=== PATIENT | female | born 1955 | race Caucasian/White ===

== ENCOUNTER 2024-09-08 14:23 | Emergency (ER) | payer MEDICARE, SELFPAY ==
[2024-09-08] VITALS (13 sets, daily range): BP systolic 141–185; BP diastolic 71–118; PULSE 61–77; RESP 15–35; TEMP 36.2; O2SAT 95–99; BMI 33.4
--- NOTE | 2024-09-08 14:33 | EKG_ITS ---
[address] [address] Test Date: 2024-09-08 Pat Name: Wendy Fountain Department: [facility] Room: Gender: Female Dependency Director: MEHDI : 1955 Requested By: Order Number: [id number] Reading MD: Farzad Christian Measurements Intervals [place] Rate: 66 P: 63 ND: 152 QRS: -6 QRSD: 90 T: 11 QT: 402 QTc: 421 Interpretive Statements Normal sinus rhythm Minimal voltage criteria for LVH, may be normal variant ( R in aVL ) Electronically Signed On 09-10-2024 15:50:30 PDT by Farzad Christian
--- NOTE | 2024-09-08 14:33 | DI.RAD.S_ITS ---
PROCEDURE: XR CHEST 1V INDICATIONS: chest pain TECHNIQUE: One view of the chest was acquired. COMPARISON: None. FINDINGS: Surgical changes and devices: None. Lungs and pleura: Left lower lobe peripheral atelectasis and or infiltrate Mediastinum: Mediastinal contours appear normal. Heart size is normal. Bones and chest wall: No suspicious bony lesions. Overlying soft tissues appear unremarkable. IMPRESSION: Left lower lobe peripheral atelectasis and or infiltrate Approved by: López Stephenson M.D. on 09/08/2024 at 14:21
[2024-09-08 14:59] LABS: Add Manual Diff / Slide Review NO; Basophils Absolute Auto 100 /uL (0-100); Eosinophils Absolute Auto 200 /uL (0-450); Eosinophils Percent Auto 2.5 % (2-4); Hematocrit 37.6 % (36-46); Hemoglobin 12.8 g/dL (12.0-16.0); Lymphocytes Absolute Auto 2300 /uL (1100-4500); Lymphocytes Percent Auto 27.9 % (25-40); Mean Corpuscular HGB Conc 34.2 % (30-36); Mean Corpuscular Hemoglobin 32.2 PG (26-34); Mean Corpuscular Volume 94.4 fL (80-100); Monocytes Absolute Auto 500 /uL (0-900); Monocytes Percent Auto 6.2 % (3-14); Neutrophils Absolute Auto 5100 /uL (1500-7000); Neutrophils Percent Auto 62.4 % (50-75); Platelet Count 268 X10^3/uL (150-400); Red Blood Cell Count 3.98 X10^6/uL (4.0-5.2); Red Cell Distribution Width 13.2 % (11.6-14.8); White Blood Cell Count 8.2 X10^3/uL (4.5-11.0)
[2024-09-08 15:03] LABS: Prothrombin Time 11.2 SECONDS (9.4-12.5)
[2024-09-08 15:06] LABS: PTT Partial Thromboplastin Tim 34 SECONDS (25.1-36.5)
[2024-09-08] MEDS: ASPIRIN 81 MG CHEW TAB 324 MG PO (15:09)
[2024-09-08 15:11] LABS: Alanine Aminotransferase 30 IU/L (<35); Albumin 4.6 g/dL (3.5-5.0); Albumin Globulin Ratio 1.8 (1.0-2.8); Alkaline Phosphatase 75 U/L (38-126); Aspartate Aminotransferase 38 IU/L (14-36); Bilirubin Total 0.5 mg/dL (0.2-1.3); Blood Urea Nitrogen 10 mg/dL (7-17); Calcium 10.1 mg/dL (8.4-10.2); Carbon Dioxide 29 mmol/L (22-32); Chloride 104 mmol/L (98-107); Creatine Kinase 58 U/L (30-135); Estimated Glomerular Filt Rate > 60 mL/min (>60); Globulin 2.6 g/dL (1.7-4.1); Glucose 104 mg/dL (80-110); HEMOLYSIS < 15 (0-50); Lipase 55 U/L (23-300); Potassium 3.6 mmol/L (3.4-5.1); Sodium 138 mmol/L (137-145); Total Protein 7.2 g/dL (6.3-8.2)
[2024-09-08 15:17] LABS: Magnesium 2.1 mg/dL (1.6-2.3)
[2024-09-08 15:21] LABS: NT-proBNP (BNP-Adult 18+) 160 pg/mL (<125); Troponin I < 0.012 ng/mL (0.01-0.034)
--- NOTE | 2024-09-08 16:23 | ED.ABDPAIN ---
HPI - Abdominal Pain General Chief Complaint: Abdominal Pain Stated Complaint: Central Abd pain Time Seen by Provider: 09/08/24 16:20 History of Present Illness HPI narrative: Patient is a 68-year-old female history of hypertension hyperlipidemia presenting today with epigastric pain. It has been ongoing since yesterday nothing makes it better or worse she denies really any chest pain. No nausea or vomiting. No shortness of breath. No dyspnea with exertion. She has no fever or chills. No lower abdominal pain no back pain. She was worried about her heart she has no known cardiac disease. Related Data Home Medications Medication Instructions Recorded Confirmed atorvastatin 20 mg tablet 20 mg PO DAILY 07/06/24 08/23/24 olmesartan 5 mg tablet 5 mg PO DAILY 07/06/24 08/23/24 Allergies Allergy/AdvReac Type Severity Reaction Status Date / Time No Known Drug Allergies Allergy Unverified 08/23/24 08:47 Patient History Medical History Hyperlipidemia Hypertension Hearing difficulty of both ears Hearing decreased Headache Foot pain Fibromyalgia (~2014) Carpal tunnel syndrome (~2007) Ankle pain (~2003) Rubella (~1971) Mumps (~1958) Measles (~1958) Chicken pox (~1958) Surgical History Anesthesia History of surgery Family History Father Cancer Mother Congestive heart failure Hypertension Mental health problem Social History Smoking Status: Never smoker Smoking Status: Never smoker Exam Initial Vital Signs Initial Vital Signs: Vital Signs Temperature 97.1 F L 09/08/24 14:29 Pulse Rate 77 09/08/24 14:29 Respiratory Rate 16 09/08/24 14:29 Blood Pressure 185/82 H 09/08/24 14:29 Pulse Oximetry 99 09/08/24 14:29 Oxygen Delivery Method Room Air 09/08/24 14:29 GENERAL: Alert well-appearing slightly anxious 68-year-old female and in no acute distress. HEENT: Head atraumatic,EOMI, pupils reactive, face symmetric, moist mucous membranes CARDIOVASCULAR: Regular rate and rhythm without murmurs, rubs or gallops. RESPIRATORY: Breath sounds equal bilaterally, no wheezes rales or rhonchi. ABDOMEN: Soft, epigastric tenderness negative Plasencia's sign no guarding no rebound EXTREMITIES: Normal range of motion, no clubbing or edema. Neurovascularly intact NEUROLOGICAL: Alert and oriented x4.Normal gait and speech. SKIN: Warm, dry, no laceration, no petechiae, no rashes or lesions. Scores HEART Score Heart Score history: Slightly Suspicious Heart Score EKG: Normal Heart Score Age: > or = 65 years old Heart Score risk factors: 1-2 risk factors Heart Score troponin: < or = to normal limit Heart Score Total: 3 Course Orders Ordered: ED Orders 09/08/24 14:33 XR chest 1V Stat Complete Blood Count AUTO DIFF Stat Comprehensive Metabolic Panel Stat Lipase Stat Magnesium Stat NT-proBNP (BNP-Adult 18+) Stat PTT Partial Thromboplastin Kenneth Stat Prothrombin Time INR Stat Troponin & CK Cardiac Panel Stat EKG-12 Lead Stat 09/08/24 16:38 Trop I [Troponin I] Stat 09/08/24 16:46 US abdomen limited Stat Discontinued Medications Aspirin (Aspirin 81 Mg Chew Tab) 324 mg PO NOW ONE Stop: 09/08/24 14:34 Last Admin: 09/08/24 15:09 Dose: 324 mg Documented By: CAROLYN Vital Signs Vital signs: Vital Signs - 8 hr 09/08/24 14:29 09/08/24 14:41 09/08/24 14:56 Temperature 97.1 F L Pulse Rate 77 73 73 Respiratory Rate 16 35 H Blood Pressure 185/82 H Pulse Oximetry 99 98 98 Oxygen Delivery Method Room Air 09/08/24 14:56 09/08/24 15:00 09/08/24 15:01 Temperature Pulse Rate 70 Respiratory Rate 24 Blood Pressure 141/79 H 176/77 H Pulse Oximetry 98 Oxygen Delivery Method 09/08/24 15:01 09/08/24 15:30 09/08/24 15:31 Temperature Pulse Rate 68 66 Respiratory Rate 25 H 16 Blood Pressure 160/71 H Pulse Oximetry 96 98 Oxygen Delivery Method 09/08/24 15:31 09/08/24 16:00 09/08/24 16:01 Temperature Pulse Rate 66 63 63 Respiratory Rate 21 18 15 Blood Pressure Pulse Oximetry 96 98 95 Oxygen Delivery Method 09/08/24 16:01 09/08/24 16:30 09/08/24 16:31 Temperature Pulse Rate 61 64 Respiratory Rate 25 H 25 H Blood Pressure 185/73 H 185/80 H Pulse Oximetry 97 98 Oxygen Delivery Method 09/08/24 17:01 09/08/24 17:31 Temperature Pulse Rate 65 69 Respiratory Rate 15 24 Blood Pressure 173/75 H 174/118 H Pulse Oximetry 96 97 Oxygen Delivery Method Room Air MDM - Abdominal Pain Lab Data 09/08/24 14:33 09/08/24 14:33 Labs: Lab Results 09/08/24 09/08/24 Range/Units 14:33 16:38 WBC 8.2 (4.5-11.0) X10^3/uL RBC 3.98 L (4.0-5.2) X10^6/uL Hgb 12.8 (12.0-16.0) g/dL Hct 37.6 (36-46) % MCV 94.4 (80-100) fL MCH 32.2 (26-34) PG MCHC 34.2 (30-36) % RDW 13.2 (11.6-14.8) % Plt Count 268 (150-400) X10^3/uL Neut % (Auto) 62.4 (50-75) % Lymph % (Auto) 27.9 (25-40) % [place] % (Auto) 6.2 (3-14) % Eos % (Auto) 2.5 (2-4) % Baso % (Auto) 1.0 (0-2) % Neut # (Auto) 5100 (5859-3813) /uL Lymph # (Auto) 2300 (7352-6076) /uL [place] # (Auto) 500 (0-900) /uL Eos # (Auto) 200 (0-450) /uL Baso # (Auto) 100 (0-100) /uL PT 11.2 (9.4-12.5) SECONDS INR 1.0 (0.9-1.3) APTT 34 (25.1-36.5) SECONDS Sodium 138 (137-145) mmol/L Potassium 3.6 (3.4-5.1) mmol/L Chloride 104 (98-107) mmol/L Carbon Dioxide 29 (22-32) mmol/L BUN 10 (7-17) mg/dL Creatinine 0.77 (0.52-1.04) mg/dL Estimated GFR > 60 (>60) mL/min BUN/Creatinine Ratio 13.0 (6-22) Glucose 104 (80-110) mg/dL Calcium 10.1 (8.4-10.2) mg/dL Magnesium 2.1 (1.6-2.3) mg/dL Total Bilirubin 0.5 (0.2-1.3) mg/dL AST 38 H (14-36) IU/L ALT 30 (<35) IU/L Alkaline Phosphatase 75 (38-126) U/L Total Creatine Kinase 58 (30-135) U/L Troponin I < 0.012 < 0.012 (0.01-0.034) ng/mL NT-Pro-B Natriuret Pep 160 H (<125) pg/mL Total Protein 7.2 (6.3-8.2) g/dL Albumin 4.6 (3.5-5.0) g/dL Globulin 2.6 (1.7-4.1) g/dL Albumin/Globulin Ratio 1.8 (1.0-2.8) Lipase 55 (23-300) U/L Imaging Data Chest x-ray: Radiologist's Impression: PROCEDURE: XR CHEST 1V INDICATIONS: chest pain TECHNIQUE: One view of the chest was acquired. COMPARISON: None. FINDINGS: Surgical changes and devices: None. Lungs and pleura: Left lower lobe peripheral atelectasis and or infiltrate Mediastinum: Mediastinal contours appear normal. Heart size is normal. Bones and chest wall: No suspicious bony lesions. Overlying soft tissues appear unremarkable. IMPRESSION: Left lower lobe peripheral atelectasis and or infiltrate Approved by: López Stephenson M.D. on 09/08/2024 at 14:21 US - abdomen: Radiologist's Impression: PROCEDURE: US ABDOMEN LIMITED INDICATIONS: RUQ TECHNIQUE: Real-time scanning was performed of the abdominal and retroperitoneal organs, with image documentation. COMPARISON: None. FINDINGS: Liver: Liver is normal in size and homogeneous in echotexture. Simple subcentimeter hepatic cysts noted in anterior right hepatic lobe. Gallbladder: No gallstones. No wall thickening. No pericholecystic edema. Negative sonographic Plasencia's sign. . Small gallbladder wall polyp measures 6.4 mm. Biliary ducts: Intrahepatic bile ducts are non-dilated. Extrahepatic bile duct caliber measures 4.5 mm. Normal is 6-7 mm or less in diameter, or 10 mm or less post-cholecystectomy. Pancreas: Visualized portions of the pancreas are sonographically normal. Miscellaneous: No free abdominal fluid. IMPRESSION: Simple right hepatic cyst measures less than a cm. Small gallbladder wall polyps. No cholelithiasis or pericholecystic inflammatory change. Approved by: López Stephenson M.D. on 09/08/2024 at 17:18 ECG Data Attestation: I personally reviewed and interpreted this ECG as follows: Prior ECG tracings: not available for review Interpretation: Normal sinus rhythm rate 66 CO interval 152 QRS [address] changes T-wave inversion noted in lead 3 only MDM Narrative Medical decision making narrative: MDM CC: Epigastric pain Complicating co-morbidities: Hypertension hyperlipidemia Medical records reviewed: Differential considered: Cholecystitis cholelithiasis acute coronary syndrome Exam documented above, pertinent findings include: Mild epigastric pain negative Plasencia's sign clear breath sounds abdomen soft Lab Test results independently reviewed as above. Pertinent findings: CBC no leukocytosis no anemia WBCs 8.2 CMP no electrolyte abnormality creatinine 0.7 Bilirubin 0.5 AST 30 ALT 30 alk-phos 75 lipase 55 Troponin negative BNP 60 Independently reviewed EKG as above no ischemic changes Imaging studies independently reviewed: Left lower lobe atelectasis Ultrasound no coli lithiasis or cholecystitis but does have gallbladder polyps Treatments: None Re-evaluations: Patient has no longer having any symptoms while in the emergency department Discussion: 68-year-old female presenting today with epigastric pain coming and going since yesterday. It is squeezing but she really denies any sort of chest pain. Heart score 3 I did discuss with her possibility of cholelithiasis, and cholecystitis would need an ultrasound. She agreed for both. She has 2- troponins ultrasound shows gallbladder polyps but no cholelithiasis or cholecystitis. At this time she feels comfortable going home she understands to return to ED if symptoms are worsening. Discharge Plan Departure Patient Disposition: Home Clinical Impression: Atypical chest pain Instructions: DI for Atypical Chest Pain Activity Restrictions/Additional Instructions: *You have been diagnosed with atypical chest *What to do: At this time please follow-up with your regular doctor in regards to further cardiac test *Continue to take medications as directed *Follow up with your primary care provider in 2-3 days or call [phone] *Return to ER if you should have increasing chest pain nausea vomiting fever [or] any new, worsening or concerning symptoms Prescriptions: No Action atorvastatin 20 mg tablet 20 mg PO DAILY olmesartan 5 mg tablet 5 mg PO DAILY Referrals: Luiza Benavidez FNP-BC [Primary Care Provider] - Stand Alone Forms: Patient Portal/API
--- NOTE | 2024-09-08 16:46 | DI.US.S_ITS ---
PROCEDURE: US ABDOMEN LIMITED INDICATIONS: RUQ TECHNIQUE: Real-time scanning was performed of the abdominal and retroperitoneal organs, with image documentation. COMPARISON: None. FINDINGS: Liver: Liver is normal in size and homogeneous in echotexture. Simple subcentimeter hepatic cysts noted in anterior right hepatic lobe. Gallbladder: No gallstones. No wall thickening. No pericholecystic edema. Negative sonographic Plasencia's sign. . Small gallbladder wall polyp measures 6.4 mm. Biliary ducts: Intrahepatic bile ducts are non-dilated. Extrahepatic bile duct caliber measures 4.5 mm. Normal is 6-7 mm or less in diameter, or 10 mm or less post-cholecystectomy. Pancreas: Visualized portions of the pancreas are sonographically normal. Miscellaneous: No free abdominal fluid. IMPRESSION: Simple right hepatic cyst measures less than a cm. Small gallbladder wall polyps. No cholelithiasis or pericholecystic inflammatory change. Approved by: óLpez Stephenson M.D. on 09/08/2024 at 17:18
--- NOTE | 2024-09-08 17:06 | EKG_ITS ---
[address] [address] Test Date: 2024-09-08 Pat Name: Wendy Fountain Department: Room: Gender: Female Naturopathic Doctor: MEHDI : 1955 Requested By: Order Number: [id number] Reading MD: Farzad Christian Measurements Intervals [place] Rate: 59 P: 33 OR: 160 QRS: -4 QRSD: 84 T: 12 QT: 414 QTc: 409 Interpretive Statements Sinus bradycardia Electronically Signed On 09-10-2024 15:48:52 PDT by Farzad Christian
[2024-09-08 17:08] LABS: Troponin I < 0.012 ng/mL (0.01-0.034)
== END 2024-09-08 17:38 | disposition home or self-care (01) ==
PROVIDERS: Emergency Provider Emergency Medicine; PCP Nurse Practitioner Family
DX: R07.89 Other chest pain (principal); I10 Essential (primary) hypertension; E78.5 Hyperlipidemia, unspecified
CPT/HCPCS: 36415; 71045; 76705; 80053; 82550; 83690; 83735; 83880; 84484; 85025; 85610; 85730; 93005; 99284

== ENCOUNTER → 2024-10-11 08:37 | Outpatient (CLI) | payer MEDICARE, SELFPAY ==
--- NOTE | 2024-10-11 08:39 | DI.US.S_ITS ---
LIMITED ULTRASOUND OF LEFT BREAST: 10/11/2024 CLINICAL: Left breast UOQ pain extending into ax tail/arm. Comparison is made to exam dated: 10/11/2024 mammogram - [facility]. Real-time ultrasound of the left breast upper outer quadrant was performed. Johnston scale images of the real-time examination were reviewed. No sonographic abnormality in the area of clinical concern in the left breast at 12, 1, 2 and 3 o'clock at a distance of 8 cm from the nipple. No abnormal lymph nodes are seen in the left axillary tail. IMPRESSION: NEGATIVE No sonographic abnormality in the areas of clinical concern. No mammographic or sonographic evidence of malignancy. A 1 year screening mammogram is recommended. Clinical follow-up is also recommended, and further management of palpable abnormalities or other focal signs or symptoms should be based on the results of clinical evaluation. If palpable abnormality or other concerning symptom persists or progresses, further clinical evaluation should be considered. Findings and recommendations were conveyed to the patient during today's evaluation. This exam was interpreted at Station ID: [id number]. Electronically Signed By: Ashlee Desai M.D., Ph.D. eb/:10/11/2024 10:22:18 letter sent: Clinical Evaluation ACR BI-RADS Category 1: Negative
--- NOTE | 2024-10-11 08:39 | DI.MG.S_ITS ---
BILATERAL DIGITAL DIAGNOSTIC MAMMOGRAM 3D/2D: 10/11/2024 CLINICAL: Left Breast Pain Baseline exam. No prior exams were available for comparison. There are scattered areas of fibroglandular density (category b / 25%-50% glandular tissue). No significant masses, calcifications, or other findings are seen in either breast. Of note, because the patient's symptoms are non-focal no BB marker was placed. IMPRESSION: INCOMPLETE: NEED ADDITIONAL IMAGING EVALUATION No mammographic evidence of malignancy. Recommend left breast ultrasound for further evaluation of area of clinical concern, which is scheduled to immediately follow this exam. Based on the Tyrer Cuzick model (a risk assessment model) the patient's lifetime risk is 6.7% and her 10 year risk is 4.0%. According to the ACR, ACS, and NCCN guidelines, an annual breast MRI exam along with mammogram is recommended if the patient's lifetime risk is 20% or greater. This exam was interpreted at Station ID: [id number]. NOTE: For mammograms, a report in lay terms will be sent to the patient. Approximately 15% of breast malignancies will not be visualized mammographically. In the management of a palpable breast mass, a negative mammogram must not discourage biopsy of a clinically suspicious lesion. Electronically Signed By: Ashlee Desai M.D., Ph.D. eb/:10/11/2024 10:19:49 letter sent: Additional Imaging Needed ACR BI-RADS Category 0: Incomplete: Need Additional Imaging Evaluation
== END ==
PROVIDERS: PCP Nurse Practitioner Family; Referring Provider Nurse Practitioner Family; Visit Provider Nurse Practitioner Family
DX: N64.4 Mastodynia (principal); R92.2 Inconclusive mammogram
CPT/HCPCS: 76642; 77066; G0279

== ENCOUNTER → 2024-10-26 15:08 | Outpatient (CLI) | payer MEDICARE, SELFPAY ==
--- NOTE | 2024-10-26 15:10 | DI.RAD.S_ITS ---
PROCEDURE: XR SHOULDER RT MIN 2V INDICATIONS: decreased ROM, pain after fall TECHNIQUE: Three views of the shoulder were acquired. COMPARISON: None. FINDINGS: Bones: No fractures or dislocations. No suspicious bony lesions. Visualized ribs appear intact. Soft tissues: No suspicious soft tissue calcifications. IMPRESSION: No acute bony abnormality. Dictated by: Lynne Martinez M.D. on 10/26/2024 at 21:36 Approved by: Lynne Martinez M.D. on 10/26/2024 at 21:36
[2024-10-26 17:35] LABS: Add Manual Diff / Slide Review NO; Basophils Absolute Auto 100 /uL (0-100); Basophils Percent Auto 1.3 % (0-2); Eosinophils Absolute Auto 100 /uL (0-450); Eosinophils Percent Auto 1.2 % (2-4); Hematocrit 41.4 % (36-46); Lymphocytes Absolute Auto 2600 /uL (1100-4500); Mean Corpuscular HGB Conc 33.7 % (30-36); Mean Corpuscular Hemoglobin 31.8 PG (26-34); Mean Corpuscular Volume 94.4 fL (80-100); Monocytes Absolute Auto 600 /uL (0-900); Monocytes Percent Auto 7.9 % (3-14); Neutrophils Absolute Auto 4300 /uL (1500-7000); Neutrophils Percent Auto 55.6 % (50-75); Platelet Count 258 X10^3/uL (150-400); Red Blood Cell Count 4.38 X10^6/uL (4.0-5.2); Red Cell Distribution Width 13.9 % (11.6-14.8); White Blood Cell Count 7.8 X10^3/uL (4.5-11.0)
[2024-10-26 17:56] LABS: Alanine Aminotransferase 21 IU/L (<35); Albumin 4.3 g/dL (3.5-5.0); Albumin Globulin Ratio 1.5 (1.0-2.8); Alkaline Phosphatase 72 U/L (38-126); Aspartate Aminotransferase 32 IU/L (14-36); BUN Creatinine Ratio 33.3 (6-22); Bilirubin Total 0.4 mg/dL (0.2-1.3); Blood Urea Nitrogen 27 mg/dL (7-17); Calcium 9.6 mg/dL (8.4-10.2); Carbon Dioxide 29 mmol/L (22-32); Chloride 104 mmol/L (98-107); Estimated Glomerular Filt Rate > 60 mL/min (>60); Globulin 2.9 g/dL (1.7-4.1); Glucose 97 mg/dL (80-110); HEMOLYSIS 36 (0-50); Potassium 4.5 mmol/L (3.4-5.1); Sodium 139 mmol/L (137-145); Total Protein 7.2 g/dL (6.3-8.2)
[2024-10-26 18:13] LABS: Hemoglobin A1C% w Est Avg Glu 5.2 % (4.0-6.0)
[2024-10-26 18:26] LABS: Thyroid Stimulating Hormone 0.793 uIU/mL (0.47-4.68)
[2024-10-26 18:40] LABS: Erythrocyte Sedimentation Rate 18 MM/HR (0-20)
[2024-10-31 19:10] LABS: ANA Screen, IFA Negative (.)
== END ==
PROVIDERS: PCP Nurse Practitioner Family; Referring Provider Nurse Practitioner Family; Visit Provider Nurse Practitioner Family
DX: M25.511 Pain in right shoulder (principal); I10 Essential (primary) hypertension; E78.2 Mixed hyperlipidemia; K21.9 Gastro-esophageal reflux disease without esophagitis; M79.601 Pain in right arm
CPT/HCPCS: 36415; 73030; 80053; 83036; 84443; 85025; 85651; 86038

== ENCOUNTER → 2025-09-25 08:27 | Outpatient (CLI) | payer MEDICARE, SELFPAY ==
[2025-09-25 09:50] LABS: Add Manual Diff / Slide Review NO; Hematocrit 38.5 % (36-46); Hemoglobin 13.0 g/dL (12.0-16.0); Lymphocytes Absolute Auto 1800 /uL (1100-4500); Mean Corpuscular HGB Conc 33.7 % (30-36); Mean Corpuscular Hemoglobin 31.4 PG (26-34); Mean Corpuscular Volume 93.1 fL (80-100); Platelet Count 259 X10^3/uL (150-400)
[2025-09-25 10:12] LABS: Blood Urea Nitrogen 13 mg/dL (7-17); Calcium 9.8 mg/dL (8.4-10.2); Carbon Dioxide 28 mmol/L (22-32); Chloride 103 mmol/L (98-107); Cholesterol 205 mg/dL (140-199); Estimated Glomerular Filt Rate > 60 mL/min (>60); Glucose 98 mg/dL (70-99); HDL Cholesterol 75 mg/dL (40-60); HEMOLYSIS < 15 (0-50); Potassium 5.1 mmol/L (3.4-5.1); Sodium 138 mmol/L (137-145); Triglycerides 104 mg/dL (35-150)
== END ==
PROVIDERS: PCP Nurse Practitioner Family; Referring Provider Nurse Practitioner Family; Visit Provider Nurse Practitioner Family
DX: E78.2 Mixed hyperlipidemia (principal); I10 Essential (primary) hypertension
CPT/HCPCS: 36415; 80048; 80061; 85025